=== PATIENT | female | born 1960 | race Caucasian/White ===

== ENCOUNTER 2017-10-20 13:49 | Emergency (ER) | payer OTHER, SELFPAY ==
[2017-10-20 14:00] VITALS: BP 126/85; PULSE 85; RESP 16; TEMP 36.9; O2SAT 98
--- NOTE | 2017-10-20 14:00 | ED.SKABFB ---
HPI - Skin/Abscess/Foreign Bdy <Susana Nguyen PA-C - Last Filed: 10/20/17 21:39> General Chief complaint: Skin/Abscess/Foreign Body Stated complaint: LEFT POINTER FINGER LACERATION, END CUT OFF Time Seen by Provider: 10/20/17 13:59 Source: patient Mode of arrival: ambulatory Limitations: no limitations History of Present Illness HPI narrative: This 56-year-old female got her left pointer finger caught in a log splitter just prior to arrival and avulsed part of the tip. She states this was bleeding quite a bit. She wrapped it. She denies any other injury and states she is otherwise feeling fine. She has not taken any pain medication. Not up-to-date on tetanus vaccine. Noted to have allergy to morphine but she took oxycodone after her knee replacement without problems. She denies any weakness or paresthesias in the finger, states it is quite painful Related Data Home Medications Medication Instructions Recorded Confirmed POLYETHYLENE GLYCOL 3350 1 scoopful PO QDAY #0 07/20/16 Previous Rx's Medication Instructions Recorded oxycodone 5 mg PO Q4HP PRN #90 tab 07/28/16 oxycodone-acetaminophen [Percocet] 1 tab PO Q6H PRN #5 tab 10/20/17 Allergies Allergy/AdvReac Type Severity Reaction Status Date / Time morphine [MORPHINE] Allergy Severe ITCHING Unverified 06/06/17 12:22 AND SWELLING Review of Systems <Susana Nguyen PA-C - Last Filed: 10/20/17 21:39> Review of Systems All systems reviewed & are unremarkable except as noted in HPI and below Exam <Susana Nguyen PA-C - Last Filed: 10/20/17 21:39> Narrative Exam Narrative: GENERAL APPEARANCE: Patient sitting comfortably, in no distress. LUNGS: Clear to auscultation bilaterally. HEART: Rate and rhythm regular without murmur, normal S1 and S2, no S3 or S4. DERMATOLOGIC: Left pointer finger medial tip avulsed just inferior to the nail. Avulsed segment measures approximately 5 x 6 mm at largest diameter. The nail is completely intact and adherent. There are some small blood vessels visible, no tendon or bone visible. MUSCULOSKELETAL: Left pointer finger full range of motion. Tendon strength is intact through out the finger against resistance in all baumann. NEUROVASCULAR: Left wrist pulses are intact, finger tips are warm and pink, sensation grossly intact Initial Vital Signs Initial Vital Signs: Vital Signs Temperature 98.4 F 10/20/17 14:00 Pulse Rate 85 10/20/17 14:00 Respiratory Rate 16 10/20/17 14:00 Blood Pressure 126/85 H 10/20/17 14:00 Pulse Oximetry 98 10/20/17 14:00 <Hilton Mcintosh DO - Last Filed: 10/21/17 07:02> Initial Vital Signs Initial Vital Signs: Vital Signs Temperature 98.4 F 10/20/17 14:00 Pulse Rate 85 10/20/17 14:00 Respiratory Rate 16 10/20/17 14:00 Blood Pressure 126/85 H 10/20/17 14:00 Pulse Oximetry 98 10/20/17 14:00 Course <Susana Nguyen PA-C - Last Filed: 10/20/17 21:39> Orders Ordered: Discontinued Medications Diphtheria/Tetanus/Acell Pertussis (Adacel) 0.5 ml IM .ONCE ONE Stop: 10/20/17 14:00 Last Admin: 10/20/17 14:07 Dose: 0.5 ml Ibuprofen (Advil) 800 mg PO NOW ONE Stop: 10/20/17 14:13 Last Admin: 10/20/17 14:24 Dose: 800 mg Oxycodone/Acetaminophen (Percocet 5/325) 2 tab PO NOW ONE Stop: 10/20/17 14:13 Last Admin: 10/20/17 14:22 Dose: 2 tab Vital Signs - 8 hr 10/20/17 14:00 10/20/17 15:17 Temperature 98.4 F Pulse Rate 85 89 Respiratory Rate 16 16 Blood Pressure 126/85 H 133/80 H Pulse Oximetry 98 98 <DO Aminah Davies Last Filed: 10/21/17 07:02> Orders Ordered: Discontinued Medications Diphtheria/Tetanus/Acell Pertussis (Adacel) 0.5 ml IM .ONCE ONE Stop: 10/20/17 14:00 Last Admin: 10/20/17 14:07 Dose: 0.5 ml Ibuprofen (Advil) 800 mg PO NOW ONE Stop: 10/20/17 14:13 Last Admin: 10/20/17 14:24 Dose: 800 mg Oxycodone/Acetaminophen (Percocet 5/325) 2 tab PO NOW ONE Stop: 10/20/17 14:13 Last Admin: 10/20/17 14:22 Dose: 2 tab Vital Signs - 8 hr 10/20/17 14:00 10/20/17 15:17 Temperature 98.4 F Pulse Rate 85 89 Respiratory Rate 16 16 Blood Pressure 126/85 H 133/80 H Pulse Oximetry 98 98 MDM - Skin/Abscess/Foreign Bdy <Susana Nguyen PA-C - Last Filed: 10/20/17 21:39> Imaging Data extremity: Radiologist's impression: BACK Finger X-Ray (Signed) Jeovany Choe - 10/20/17 View Report History [address] [address] XRay Report Signed Patient: Judy Bee MR#: [id number] : 1960 Acct:[id number] Age/Sex: 56 / F Date of Service: 10/20/17 Loc: ED Accession Number: [id number] Procedure: XR finger LT min 2V Ordering Provider: Susana Nguyen P.A-C PROCEDURE: XR FINGER LT MIN 2V INDICATIONS: avulsion TECHNIQUE: AP hand, 2 views of the second finger(s) acquired. COMPARISON: None. FINDINGS: Bones: No fractures or dislocations. No suspicious bony lesions. A distal tuft fracture is not identified despite immediate adjacent significant soft tissue evulsion.. Soft tissues: No suspicious soft tissue calcifications. Soft tissue avulsion at the distal tuft region of the second phalanx, without fracture or foreign body associated. IMPRESSION: Soft tissue injury but without fracture or foreign body. Dictated by: Jeovany Choe M.D. on 10/20/2017 at 14:42 Approved by: Jeovany Choe M.D. on 10/20/2017 at 14:43 Discharge Plan Departure Patient Disposition: Home Clinical Impression: Avulsion of finger tip Discharge Date/Time: 10/20/17 15:17 Interventions: ED Discharge Assessment Last Done: 10/20/17 15:17 Instructions: DI for Avulsion Laceration (Not Requiring Sutures) Activity Restrictions/Additional Instructions: You can cut out a piece of the film that we gave you and put it on the tip of your finger each time you changed the dressing. This stops bleeding and will help keep it from losing as well as protecting. Please keep this wrap for comfort. Please watch for any signs of infection as we talked about, such as redness, swelling, drainage or fever, and get to your primary care provider or ED right away if any. You can continue taking ibuprofen for pain, and I have given you a prescription for a few Percocet in case you needed over the next day or 2. [address] and take that is it may make you sleepy. Prescriptions: New oxycodone-acetaminophen [Percocet] 5-325 mg tablet 1 tab PO Q6H PRN (Reason: pain in finger) Qty: 5 RF: 0 No Action POLYETHYLENE GLYCOL 3350 1 scoopful PO QDAY Qty: 0 RF: 0 oxycodone 5 MG tablet 5 mg PO Q4HP PRNQty: 90 RF: 0 Referrals: Niranjan Ashby MD [Primary Care Provider] - <Hilton Mcintosh DO - Last Filed: 10/21/17 07:02> Cosign ED Attending Keke Attestation: I was available for consultation during this patient's emergency department encounter
[2017-10-20] MEDS: TET,DIPH,PERTUSS(ACELL),VAC/PF 0.5 ML SYRINGE IM (14:07)
[2017-10-20] MEDS: OXYCODONE/ACETAMINOPHEN 5/325 TABLET 2 TAB PO (14:22)
[2017-10-20] MEDS: IBUPROFEN 400 MG TABLET 800 MG PO (14:24)
[2017-10-20 15:17] VITALS: BP 133/80; PULSE 89; RESP 16; O2SAT 98
== END 2017-10-20 15:17 | disposition home or self-care (01) ==
PROVIDERS: Emergency Provider Internal Medicine; PCP Family Medicine
DX: S61.211A Laceration without foreign body of left index finger without damage to nail, initial encounter (principal); W31.2XXA Contact with powered woodworking and forming machines, initial encounter
CPT/HCPCS: 73140; 90471; 99282; 99283; 90715

== ENCOUNTER 2022-02-11 22:11 | Emergency (ER) | payer OTHER, SELFPAY ==
[2022-02-11] VITALS (7 sets, daily range): BP systolic 106–173; BP diastolic 61–74; PULSE 74–85; RESP 14–22; TEMP 36.4; O2SAT 98–100
--- NOTE | 2022-02-11 22:21 | DI.RAD.S_ITS ---
PROCEDURE: XR CHEST 1V INDICATIONS: chest pain TECHNIQUE: One view of the chest was acquired. COMPARISON: None. FINDINGS: Surgical changes and devices: None. Lungs and pleura: Lungs are clear. No pleural effusions or pneumothorax. Mediastinum: Mediastinal contours appear normal. Heart size is normal. Bones and chest wall: No suspicious bony lesions. Overlying soft tissues appear unremarkable. IMPRESSION: Normal for age, source of current chest pain symptoms is not seen. Dictated by: Jeovany Choe M.D. on 02/11/2022 at 23:11 Approved by: Jeovany Choe M.D. on 02/11/2022 at 23:11
[2022-02-11 22:34] LABS: Prothrombin Time 11.7 SECONDS (10.1-12.7)
[2022-02-11 22:36] LABS: PTT Partial Thromboplastin Tim 29 SECONDS (26-36)
[2022-02-11 22:39] LABS: Add Manual Diff / Slide Review NO; Basophils Absolute Auto 0 /uL (0-100); Basophils Percent Auto 0.8 % (0-2); Eosinophils Absolute Auto 0 /uL (0-450); Eosinophils Percent Auto 0.3 % (2-4); Hematocrit 41.9 % (36-46); Hemoglobin 14.2 g/dL (12.0-16.0); Lymphocytes Absolute Auto 1000 /uL (1100-4500); Lymphocytes Percent Auto 17.5 % (25-40); Mean Corpuscular HGB Conc 33.9 % (30-36); Mean Corpuscular Hemoglobin 30.6 PG (26-34); Mean Corpuscular Volume 90.3 fL (80-100); Monocytes Absolute Auto 700 /uL (0-900); Monocytes Percent Auto 13.3 % (3-14); Neutrophils Absolute Auto 3800 /uL (1500-7000); Neutrophils Percent Auto 68.1 % (50-75); Platelet Count 255 X10^3/uL (150-400); Red Blood Cell Count 4.64 X10^6/uL (4.0-5.2); Red Cell Distribution Width 14.7 % (11.6-14.8); White Blood Cell Count 5.5 X10^3/uL (4.5-11.0)
[2022-02-11 22:48] LABS: Alanine Aminotransferase 48 IU/L (<35); Albumin Globulin Ratio 1.3 (1.0-2.8); Alkaline Phosphatase 71 U/L (38-126); Aspartate Aminotransferase 69 IU/L (14-36); BUN Creatinine Ratio 28.1 (6-22); Bilirubin Total 0.2 mg/dL (0.2-1.3); Blood Urea Nitrogen 16 mg/dL (7-17); Calcium 8.9 mg/dL (8.4-10.2); Carbon Dioxide 26 mmol/L (22-32); Chloride 105 mmol/L (98-107); Creatine Kinase 113 U/L (30-135); Estimated Glomerular Filt Rate > 60 mL/min (>60); Globulin 3.2 g/dL (1.7-4.1); Glucose 111 mg/dL (70-100); HEMOLYSIS < 15 (0-50); Lipase 257 U/L (23-300); Magnesium 1.8 mg/dL (1.6-2.3); Potassium 3.9 mmol/L (3.4-5.1); Sodium 136 mmol/L (137-145); Total Protein 7.2 g/dL (6.3-8.2)
[2022-02-11 23:00] LABS: Troponin I < 0.012 ng/mL (0.01-0.034)
--- NOTE | 2022-02-11 23:01 | ED_ITS ---
HPI - Syncope General Chief Complaint: Dizziness Stated Complaint: Collapsed, Weakness Time Seen by Provider: 02/11/22 23:01 Source: patient and family Mode of arrival: Ambulatory Limitations: no limitations History of Present Illness HPI narrative: This is a 61-year-old female with history chronic tobacco use, 3 alcoholic drinks daily, knee replacement, hysterectomy tubal ligation and removal breast implants. Patient has felt unwell for the last 2 days tonight she got cold then felt very hot got very sweaty and had pain in her mid abdomen that lasted about 45 minutes she had 1 episode of vomiting and felt nauseated. Patient states she is had chronic diarrhea she is had dark brown stools but no black or bloody stools noted. She got up to go to the bathroom had what sounds like a syncopal episode that was brief her lowered her to the ground. He states she was shaking but interacted with her and that lasted at least 5 or 10 minutes until EMS came lifted her off the floor. She denies chest pain or shortness of breath. She denies back or flank pain. No new urinary symptoms. Patient state s she takes stool softeners regularly but does have chronic diarrhea. She takes naproxen or ibuprofen occasionally but not daily. She is had a knee replacement, hysterectomy, tubal ligation, removal of breast implants and colonoscopy that was-3-4 4 years ago and told she could return in 7-10 years. She uses tobacco daily, 3 shots of hard liquor daily, no illicit other than edibles for sleep some nights. Patient has also been working quite a bit extra worked 12 and 13 hours the last 2 days [facility]. She has had immunizations for COVID. Related Data Home Medications Medication Instructions Recorded Confirmed POLYETHYLENE GLYCOL 3350 1 scoopful PO QDAY ##0 07/20/16 Previous Rx's Medication Instructions Recorded oxycodone 5 mg tablet 5 mg PO Q4HP PRN #90 tabs 07/28/16 oxycodone-acetaminophen 5 mg-325 1 tab PO Q6H PRN pain in finger #5 10/20/17 mg tablet (Percocet) tabs Allergies Allergy/AdvReac Type Severity Reaction Status Date / Time morphine [MORPHINE] Allergy Severe ITCHING Unverified 06/06/17 12:22 AND SWELLING Review of Systems Review of Systems ROS Unobtainable: All systems reviewed & are unremarkable except as noted in HPI and below Patient History 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 Clear speech. HEENT: Head normocephalic, atraumatic, EOMI, pupils reactive, face symmetric, moist mucous membranes NECK: Supple, full range of motion CARDIOVASCULAR: Regular rate and rhythm without murmurs, rubs or gallops. No JVD. No swelling bilateral lower extremities. RESPIRATORY: Breath sounds equal bilaterally, no wheezes rales or rhonchi. No tachypnea accessory muscle use. Speaks in full sentences. ABDOMEN: Soft, mild generalized tenderness. Nondistended. Normoactive bowel sounds all 4 quadrants. No guarding or rebound, rigidity, no mass : No CVA tenderness EXTREMITIES: Normal range of motion, no clubbing or edema. Neurovascularly intact. Patient has full range of motion of all 4 extremities 5/5 muscle strength. NEUROLOGICAL: Cranial nerves II through XII grossly intact. Moving all extremities SKIN: Warm, dry, no petechiae, no rashes or lesions. Initial Vital Signs Initial Vital Signs: Vital Signs Blood Pressure 130/73 02/11/22 22:16 Course Orders Ordered: ED Orders 02/11/22 22:18 Complete Blood Count AUTO DIFF Stat Comprehensive Metabolic Panel Stat Lipase Stat Magnesium Stat Partial Thromboplastin Time Stat Prothrombin Time INR Stat Troponin & CK Cardiac Panel Stat 02/11/22 22:21 XR chest 1V Stat EKG-12 Lead Stat 02/11/22 22:42 COVID19 -Nasal RAPID/Pre-Proc Stat 02/11/22 23:25 CT abdomen pelvis w con Stat 02/12/22 EKG-12 Lead Routine 02/12/22 00:50 Trop I [Troponin I] Stat Discontinued Medications Sodium Chloride (Normal Saline 0.9%) 1,000 mls @ 1,000 mls/hr IV BOLUS ONE Stop: 02/12/22 00:23 Last Infusion: 02/12/22 00:55 Dose: 0 mls/hr Documented By: Admin: 02/11/22 23:55 Dose: 1,000 mls/hr Documented By: SOLIS Vital Signs Vital signs: Vital Signs - 8 hr 02/11/22 22:21 02/11/22 22:16 02/11/22 22:17 Temperature 97.6 F Pulse Rate 80 81 Respiratory Rate 14 22 Blood Pressure 173/73 H 130/73 Pulse Oximetry 98 100 Oxygen Delivery Method Room Air 02/11/22 22:30 02/11/22 22:31 02/11/22 22:31 Temperature Pulse Rate 84 85 Respiratory Rate 22 20 Blood Pressure 125/61 Pulse Oximetry 99 99 Oxygen Delivery Method 02/11/22 23:00 02/11/22 23:00 02/11/22 23:30 Temperature Pulse Rate 74 Respiratory Rate 21 Blood Pressure 106/74 111/72 Pulse Oximetry 99 Oxygen Delivery Method 02/11/22 23:30 02/12/22 00:00 02/12/22 00:00 Temperature Pulse Rate 75 70 Respiratory Rate 21 20 Blood Pressure 107/78 Pulse Oximetry 98 98 Oxygen Delivery Method 02/12/22 00:30 02/12/22 00:30 02/12/22 01:00 Temperature Pulse Rate 72 Respiratory Rate 19 Blood Pressure 124/75 105/74 Pulse Oximetry 100 Oxygen Delivery Method 02/12/22 01:00 02/12/22 01:32 02/12/22 01:33 Temperature Pulse Rate 67 76 Respiratory Rate 19 22 Blood Pressure 109/81 Pulse Oximetry 99 91 Oxygen Delivery Method 02/12/22 01:33 02/12/22 02:00 02/12/22 02:00 Temperature Pulse Rate 76 72 Respiratory Rate 21 20 Blood Pressure 114/78 Pulse Oximetry 96 100 Oxygen Delivery Method MDM - Syncope Lab Data Result diagrams: 02/11/22 22:18 02/11/22 22:18 Labs: Lab Results 02/11/22 02/11/22 02/11/22 Range/Units 22:18 22:18 22:18 WBC 5.5 (4.5-11.0) X10^3/uL RBC 4.64 (4.0-5.2) X10^6/uL Hgb 14.2 (12.0-16.0) g/dL Hct 41.9 (36-46) % MCV 90.3 (80-100) fL MCH 30.6 (26-34) PG MCHC 33.9 (30-36) % RDW 14.7 (11.6-14.8) % Plt Count 255 (150-400) X10^3/uL Neut % (Auto) 68.1 (50-75) % Lymph % (Auto) 17.5 L (25-40) % [place] % (Auto) 13.3 (3-14) % Eos % (Auto) 0.3 L (2-4) % Baso % (Auto) 0.8 (0-2) % Neut # (Auto) 3800 (6624-3379) /uL Lymph # (Auto) 1000 L (0853-9107) /uL [place] # (Auto) 700 (0-900) /uL Eos # (Auto) 0 (0-450) /uL Baso # (Auto) 0 (0-100) /uL PT 11.7 (10.1-12.7) SECONDS INR 1.0 (0.9-1.3) APTT 29 (26-36) SECONDS Sodium 136 L (137-145) mmol/L Potassium 3.9 (3.4-5.1) mmol/L Chloride 105 (98-107) mmol/L Carbon Dioxide 26 (22-32) mmol/L BUN 16 (7-17) mg/dL Creatinine 0.57 (0.52-1.04) mg/dL Estimated GFR > 60 (>60) mL/min BUN/Creatinine Ratio 28.1 H (6-22) Glucose 111 H (70-100) mg/dL Calcium 8.9 (8.4-10.2) mg/dL Magnesium 1.8 (1.6-2.3) mg/dL Total Bilirubin 0.2 (0.2-1.3) mg/dL AST 69 H (14-36) IU/L ALT 48 H (<35) IU/L Alkaline Phosphatase 71 (38-126) U/L Total Creatine Kinase 113 (30-135) U/L CK-MB (CK-2) 1.15 (<2.37) ng/mL CK-MB (CK-2) Rel Index 1.0 L (1.5-5.0) % Troponin I < 0.012 (0.01-0.034) ng/mL Total Protein 7.2 (6.3-8.2) g/dL Albumin 4.0 (3.5-5.0) g/dL Globulin 3.2 (1.7-4.1) g/dL Albumin/Globulin Ratio 1.3 (1.0-2.8) Lipase 257 (23-300) U/L SARS-CoV-2 (PCR) (Negative) 02/11/22 02/12/22 Range/Units 22:42 00:50 WBC (4.5-11.0) X10^3/uL RBC (4.0-5.2) X10^6/uL Hgb (12.0-16.0) g/dL Hct (36-46) % MCV (80-100) fL MCH (26-34) PG MCHC (30-36) % RDW (11.6-14.8) % Plt Count (150-400) X10^3/uL Neut % (Auto) (50-75) % Lymph % (Auto) (25-40) % [place] % (Auto) (3-14) % Eos % (Auto) (2-4) % Baso % (Auto) (0-2) % Neut # (Auto) (3128-3355) /uL Lymph # (Auto) (8815-9129) /uL [place] # (Auto) (0-900) /uL Eos # (Auto) (0-450) /uL Baso # (Auto) (0-100) /uL PT (10.1-12.7) SECONDS INR (0.9-1.3) APTT (26-36) SECONDS Sodium (137-145) mmol/L Potassium (3.4-5.1) mmol/L Chloride (98-107) mmol/L Carbon Dioxide (22-32) mmol/L BUN (7-17) mg/dL Creatinine (0.52-1.04) mg/dL Estimated GFR (>60) mL/min BUN/Creatinine Ratio (6-22) Glucose (70-100) mg/dL Calcium (8.4-10.2) mg/dL Magnesium (1.6-2.3) mg/dL Total Bilirubin (0.2-1.3) mg/dL AST (14-36) IU/L ALT (<35) IU/L Alkaline Phosphatase (38-126) U/L Total Creatine Kinase (30-135) U/L CK-MB (CK-2) (<2.37) ng/mL CK-MB (CK-2) Rel Index (1.5-5.0) % Troponin I < 0.012 (0.01-0.034) ng/mL Total Protein (6.3-8.2) g/dL Albumin (3.5-5.0) g/dL Globulin (1.7-4.1) g/dL Albumin/Globulin Ratio (1.0-2.8) Lipase (23-300) U/L SARS-CoV-2 (PCR) Positive H (Negative) Imaging Data Chest x-ray: Radiologist's Impression: [address] [address] XRay Report Signed Patient: Judy Bee MR#: [id number] : 1960 Acct:[id number] Age/Sex: 61 / F Date of Service: 02/11/22 Loc: ED Accession Number: [id number] ?? Procedure: XR chest 1V Ordering Provider: Lady Doyle D.O. PROCEDURE:? XR CHEST 1V ? INDICATIONS:? chest pain ? TECHNIQUE:? One view of the chest was acquired.? ? COMPARISON:? None. ? FINDINGS:? ? Surgical changes and devices:? None.? ? Lungs and pleura:? Lungs are clear.? No pleural effusions or pneumothorax.? ? Mediastinum:? Mediastinal contours appear normal.? Heart size is normal.? ? Bones and chest wall:? No suspicious bony lesions.? Overlying soft tissues appear unremarkable.? ? IMPRESSION:? Normal for age, source of current chest pain symptoms is not seen. ? ? Dictated by: Jeovany Choe M.D. on 02/11/2022 at 23:11 ? ? Approved by: Jeovany Choe M.D. on 02/11/2022 at 23:11?? CT scan - abdomen/pelvis: Radiologist's Impression: Close Abdomen/Pelvis CT (Signed) Jeovany Choe - 02/11/22 Chest X-Ray (Signed) Jeovany Choe - 02/11/22 Launch?[address] [address] [address] Scan Report Signed Patient: Judy Bee MR#: [id number] : 1960 Acct:[id number] Age/Sex: 61 / F Date of Service: 02/11/22 Loc: ED Accession Number: [id number] ?? Procedure: CT abdomen pelvis w con Ordering Provider: Lady Doyle D.O. PROCEDURE:? CT ABDOMEN PELVIS W CON ? INDICATIONS:? abd pain, vomiting, +covid, syncope ? TECHNIQUE:? After the administration of intravenous contrast, axial sections acquired from the lung bases to the pubic symphysis.? Coronal and sagittal reformats were performed.? For radiation dose reduction, the following was used:? automated exposure control, adjustment of mA and/or kV according to patient size.? ? COMPARISON:? None. ? FINDINGS:? Image quality:? Excellent.? ? Lung bases:? Unremarkable. Heart:? No significant findings. ? ABDOMEN: Liver:? Unremarkable.? ? Gallbladder:? Is not well seen and is partially contracted.? ? Biliary ducts:? Unremarkable.? ? Pancreas:? Unremarkable.? ? Spleen:? Unremarkable.? ? Adrenal Glands:? Unremarkable.? ? Kidneys and Ureters:? Unremarkable.? ? ? Stomach and Bowel:? Stomach, small bowel loops, and colon are unremarkable.? Peritoneum:? No abnormal intraperitoneal fluid.? No free air.? ? Ventral Wall: ? No hernias.? Abdominal Nodes:? No retroperitoneal or mesenteric adenopathy by size criteria.? Vessels:? Aorta and inferior vena cava are normal in size.? ? PELVIS: Pelvic Organs:? Unremarkable.? ? Bladder:? Unremarkable.? ? Pelvic Nodes: No enlarged lymph nodes.? Miscellaneous: No hernias are seen. ? ? ? Bones:? Unremarkable.? IMPRESSION:? No acute disease.? There is no sign of intestinal obstruction or perforation. ? ? Dictated by: Jeovany Choe M.D. on 02/12/2022 at 0:27 ? ? Approved by: Jeovany Choe M.D. on 02/12/2022 at 0:28?? ECG Data Attestation: I personally reviewed and interpreted this ECG as follows: Interpretation: Sinus rhythm rate of 78 P 142 QRS 80 QTC [address] changes. Patient has prior from 06/13/2016 which shows no change. EKG 2. Shows a sinus rhythm rate of 70 2p are 160 QRS 82 and QTC 464. No acute ST changes dynamic MDM Narrative Medical decision making narrative: This is a 61-year-old female who presents with syncopal episode that was brief but she did have an episode of abdominal pain. Patient is hypotensive when I am in the room but her and her state her pressure is normally around 100. Patient's labs do not show significant changes other than AST ALT 69 in 48 bilirubin and lipase are negative. Patient is COVID positive today. Chest x- ray negative, EKG does not show any acute changes. Plan for repeat troponin EKG at 2hour [place], patient did have abdominal pain vomiting syncopal episode so CT abdomen pelvis obtained and shows no acute change. Patient's repeat troponin EKG also showed no acute change. Suspect syncope related to patient's recent infection, regular alcohol use and being up and working 20+ hours in the last 2 days. Patient has ambulated here in the department and is feeling better. Discussed return precautions signs and symptoms to watch for. Discharge Plan Departure Patient Disposition: Home Clinical Impression: Syncope, COVID-19 virus infection Instructions: DI for Syncope in Adults (Fainting) Activity Restrictions/Additional Instructions: You have tested positive for COVID infection today. Your liver enzymes are very mildly elevated today this is likely secondary to alcohol use. I suspect your episode of passing out today is related to your current infection Make sure drinking plenty of fluids. You may take Tylenol and/or ibuprofen as needed for fevers. Please return if recurrent episodes of passing out, severe headaches, new chest pain or shortness of breath, persistent vomiting, black or bloody stools or other new or concerning changes. Prescriptions: No Action POLYETHYLENE GLYCOL 3350 1 scoopful PO QDAY Qty: 0 oxycodone 5 MG tablet 5 mg PO Q4HP PRNQty: 90 0RF oxycodone-acetaminophen [Percocet] 5-325 mg tablet 1 tab PO Q6H PRN (Reason: pain in finger) Qty: 5 0RF Referrals: Niranjan Ashby MD [Primary Care Provider] -
[2022-02-11 23:04] LABS: Creatine Kinase MB 1.15 ng/mL (<2.37)
[2022-02-11 23:05] LABS: COVID19 -Nasal RAPID POSITIVE (Negative)
--- NOTE | 2022-02-11 23:25 | DI.CT.S_ITS ---
PROCEDURE: CT ABDOMEN PELVIS W CON INDICATIONS: abd pain, vomiting, +covid, syncope TECHNIQUE: After the administration of intravenous contrast, axial sections acquired from the lung bases to the pubic symphysis. Coronal and sagittal reformats were performed. For radiation dose reduction, the following was used: automated exposure control, adjustment of mA and/or kV according to patient size. COMPARISON: None. FINDINGS: Image quality: Excellent. Lung bases: Unremarkable. Heart: No significant findings. ABDOMEN: Liver: Unremarkable. Gallbladder: Is not well seen and is partially contracted. Biliary ducts: Unremarkable. Pancreas: Unremarkable. Spleen: Unremarkable. Adrenal Glands: Unremarkable. Kidneys and Ureters: Unremarkable. Stomach and Bowel: Stomach, small bowel loops, and colon are unremarkable. Peritoneum: No abnormal intraperitoneal fluid. No free air. Ventral Wall: No hernias. Abdominal Nodes: No retroperitoneal or mesenteric adenopathy by size criteria. Vessels: Aorta and inferior vena cava are normal in size. PELVIS: Pelvic Organs: Unremarkable. Bladder: Unremarkable. Pelvic Nodes: No enlarged lymph nodes. Miscellaneous: No hernias are seen. Bones: Unremarkable. IMPRESSION: No acute disease. There is no sign of intestinal obstruction or perforation. Dictated by: Jeovany Choe M.D. on 02/12/2022 at 0:27 Approved by: Jeovany Choe M.D. on 02/12/2022 at 0:28
--- NOTE | 2022-02-11 23:33 | PC.NURSE ---
To radiology via stretcher with tech
--- NOTE | 2022-02-11 23:45 | PC.NURSE ---
Returns to the ER via stretcher with tech
[2022-02-11] MEDS: SODIUM CHLORIDE 0.9% 1,000 ML 1000 ML IV (23:55)
[2022-02-12] VITALS: BP 107/78; PULSE 70; RESP 20; O2SAT 98
[2022-02-12 00:30] VITALS: BP 124/75; PULSE 72; RESP 19; O2SAT 100
--- NOTE | 2022-02-12 00:30 | PC.NURSE ---
Resting quietly in NAD - no needs voiced - PWD with respirations equal and unlabored bilaterally - family at bedside
[2022-02-12 01:00] VITALS: BP 105/74; PULSE 67; RESP 19; O2SAT 99
--- NOTE | 2022-02-12 01:15 | PC.NURSE ---
No changes in pt status at this time
[2022-02-12 01:18] LABS: Troponin I < 0.012 ng/mL (0.01-0.034)
[2022-02-12 01:32] VITALS: PULSE 76; RESP 22; O2SAT 91
[2022-02-12 01:33] VITALS: BP 109/81; PULSE 76; RESP 21; O2SAT 96
[2022-02-12 02:00] VITALS: BP 114/78; PULSE 72; RESP 20; O2SAT 100
== END 2022-02-12 02:43 | disposition home or self-care (01) ==
PROVIDERS: Emergency Provider Emergency Medicine; PCP Family Medicine
DX: U07.1 COVID-19 (principal); R55 Syncope and collapse; R10.9 Unspecified abdominal pain; I95.9 Hypotension, unspecified; R07.9 Chest pain, unspecified
CPT/HCPCS: 36415; 71045; 74177; 80053; 82550; 82553; 83690; 83735; 84484; 85025; 85610; 85730; 87635; 93005; 93010; 96360; 99284; C9803

== ENCOUNTER 2024-03-25 09:12 | Day surgery (SDC) | payer OTHER, SELFPAY ==
[2024-03-25 11:35] VITALS: BP 115/68; PULSE 68; RESP 16; TEMP 36.4; O2SAT 95
[2024-03-25] MEDS: SODIUM CHLORIDE 0.9% 1,000 ML 84 ML IV ×2 (11:50→13:00)
--- NOTE | 2024-03-25 12:17 | P.HP_ITS ---
History of Present Illness History of Present Illness Date Patient Seen: 03/25/24 Time Patient Seen: 12:17 Chief complaint: [facility] [place]: Had one colonoscopy ~ 10 yrs ago, and was NORMAL. 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/14) Surgical History Hx of total knee arthroplasty Status post vaginal hysterectomy Social History Smoking Status: Current every day smoker alcohol intake: current Meds Home Medications and Allergies Home Medications Medication Instructions Recorded Confirmed Type oxycodone 5 mg tablet 5 mg PO Q4HP PRN #90 tabs 07/28/16 Rx oxycodone-acetaminophen 5 mg-325 1 tab PO Q6H PRN pain in finger #5 10/20/17 Rx mg tablet (Percocet) tabs Allergies Allergy/AdvReac Type Severity Reaction Status Date / Time morphine [MORPHINE] Allergy Severe ITCHING Verified 03/25/24 11:49 AND SWELLING Review of Systems Review of Systems ROS: Yes All systems reviewed with the patient and are negative except as otherwise documented Exam Vital Signs (past 8 hours): - 03/25/24 11:35 Temperature 97.6 F Pulse Rate 68 Respiratory Rate 16 Blood Pressure 115/68 Pulse Oximetry 95 Oxygen Delivery Method Room Air Oxygen Delivery Method Room Air Narrative Exam Narrative: Normal Abdominal exam Assessment & Plan Assessment and plan (1) Screening for colon cancer: Problem details: Leukopenia, but NO colon symptoms, and negative FH of colon cancer, no bleeding with the stools, and no Diarrhea, no constipation. Status: Acute Time-Based Coding :: [TOTAL MINUTES] spent with patient and on the chart (including review of chart, obtaining history, exam, reviewing outside data, placing orders, documenting exam and treatment plan, and counseling patient) on [DATE]. [employer] Operator Document charge(s): Yes
--- NOTE | 2024-03-25 13:17 | P.OP.COLON_ITS ---
Operative Date/Time/Diagnoses Date of procedure: 03/25/24 Time of procedure: 13:17 Pre-op diagnosis: Screening colon cancer Post-op diagnosis: same Procedure & Clinicians Surgeon: Charo White Procedure Notes Procedure in detail: OPERATIVE / PROCEDURE NOTE Judy Bee, 1960, 63,Female,CSN: [id number] 03/25/24 PREOPERATIVE DIAGNOSIS: Need screening colon cancer. POSTOPERATIVE DIAGNOSIS: Same + Per the colonoscopy to the cecum: NORMAL colon, but stage III internal hemorrhoids. PROCEDURE DONE: Colonoscopy to the cecum. ANESTHESIA: MAC per Anesthesia. COMPLICATIONS: None. SPECIMENS: None. ESTIMATED BLOOD LOSS: NONE. CONDITION: Stable to the PACU. OPERATIVE DESCRIPTION: After proper informed consent was signed by the patient knowing all the risks, benefits, and potential complications and possible alternatives of the procedure, the patient was appropriately identified. Judy Bee underwent a bowel prep that was very efficient yesterday, and the colon was clean. After institution of sedation on her left lateral decubitus position, a rectal exam was performed. Normal rectal and anal tone was found. The Olympus colonoscope was placed into her anus and under direct visualization was advanced from the rectum to the rectosigmoid to the sigmoid to the left colon, splenic flexure, transverse colon, hepatic flexure, ascending colon, and all the way to the cecum. Circumferential visualization of the mucosa was possible. The appendix aperture was noted. The ileocecal valve was noted. No large tumors. No ulcers. No inflammatory bowel disease changes were noted. No diverticulae noted in the sigmoid colon. In the rectum, the scope was retroflexed, and Grade III internal hemorrhoids were noted. The scope was straightened back again. The colon was decompressed, and the scope was retracted out uneventfully. The patient tolerated the procedure well without any complications, was sent to the PACU in stable condition. RECOMMENDATIONS: Continue high-fiber diet - 30-40 gm/day with daily fiber supplementation. F/u colonoscopy in 10 yrs. Charo White MD, JAIRNO, LIZA
[2024-03-25 13:57] VITALS: BP 98/55; PULSE 84; RESP 20; TEMP 36.1; O2SAT 99
[2024-03-25 14:02] VITALS: BP 109/65; PULSE 78; RESP 26; O2SAT 98
[2024-03-25 14:05] VITALS: BP 99/59; PULSE 79; RESP 59; TEMP 35.8; O2SAT 98
[2024-03-25] MEDS: ONDANSETRON 4 MG/2 ML INJ IV (14:07)
--- NOTE | 2024-03-25 14:09 | SUR.PHASEII ---
Patient had reported 6-7/10 abdominal pain and was repositioned to her left side. She also c/o nausea. Medicated with Zofran. Patient has now reported abdominal pain is 4/10.
[2024-03-25 14:11] VITALS: BP 96/57; PULSE 71; RESP 21; O2SAT 100
== END 2024-03-25 14:36 | disposition home or self-care (01) ==
PROVIDERS: PCP Family Medicine; Referring Provider Surgery; Visit Provider Surgery
PROC: 0DJD8ZZ Inspection of Lower Intestinal Tract, Via Natural or Artificial Opening Endoscopic (ICD-10-PCS; CPT 45378; principal; 2024-03-25 10:30)
DX: Z12.11 Encounter for screening for malignant neoplasm of colon (principal); K64.2 Third degree hemorrhoids; F17.200 Nicotine dependence, unspecified, uncomplicated
CPT/HCPCS: G0121; J2405; J2704

== ENCOUNTER → 2024-10-03 12:54 | Outpatient (CLI) | payer OTHER, SELFPAY ==
--- NOTE | 2024-10-03 12:55 | DI.CT.S_ITS ---
PROCEDURE: CT ABDOMEN PELVIS W CON INDICATIONS: Weight loss TECHNIQUE: After the administration of intravenous contrast, axial sections acquired from the lung bases to the pubic symphysis. Coronal and sagittal reformats were performed. For radiation dose reduction, the following was used: automated exposure control, adjustment of mA and/or kV according to patient size. COMPARISON: [facility], CT, CT ABDOMEN PELVIS W CON, 02/11/2022, 23:32. FINDINGS: Image quality: Diagnostic. Lower Chest: No significant findings. ABDOMEN: Liver: No solid mass. Gallbladder: No radiopaque gallstones or wall thickening. Biliary ducts: No biliary dilation. Pancreas: No ductal dilation. Spleen: Size is within normal limits. Adrenal Glands: No adrenal nodules. Kidneys and Ureters: No hydronephrosis. No solid mass. No complex renal cystic lesion which requires follow up. Stomach and Bowel: Normal colonic caliber, without significant wall thickening. Peritoneum: No abnormal intraperitoneal fluid. No free air. Ventral Wall: No significant ventral hernia. Abdominal Nodes: No retroperitoneal or mesenteric adenopathy by size criteria. Vessels: Aorta and inferior vena cava are normal in size. PELVIS: Pelvic Organs: Status post hysterectomy. No adnexal mass seen. Bladder: No bladder wall thickening, accounting for underdistention. Pelvic Nodes: No enlarged lymph nodes. Miscellaneous: No inguinal hernias are seen. Bones: No aggressive osseous abnormality. IMPRESSION: No acute abnormality or definite mass seen. Dictated by: Jama Gage M.D. on 10/04/2024 at 14:44 Approved by: Jama Gage M.D. on 10/04/2024 at 14:48
[2024-10-03 13:21] LABS: Estimated Glomerular Filt Rate > 60 mL/min (>60)
== END ==
PROVIDERS: PCP Family Medicine; Referring Provider Surgery; Visit Provider Surgery
DX: R63.4 Abnormal weight loss (principal); Z90.710 Acquired absence of both cervix and uterus
CPT/HCPCS: 36415; 74177; 82565; Q9967